=== PATIENT | male | born 1960 | race Caucasian/White ===

== ENCOUNTER 2020-06-01 09:45 | Day surgery (SDC) | payer OTHER ==
[2020-05-30 10:20] LABS: HEMATOCRIT 45.1 % (42.0-54.0); HEMOGLOBIN 15.6 g/dL (13.5-17.5); MCH 33.1 pg (26.0-34.0); MCHC 34.6 g/dL (31.0-37.0); MCV 95.6 fL (80.0-100.0); MEAN PLATELET VOLUME 9.7 fL (7.4-10.4); RBC 4.72 10x6/uL (4.20-6.10); RDW 14.1 % (11.5-14.5); WBC 10.1 10x3/uL (4.8-10.8)
[~2020-06-01] VITALS: Ht 185.4 cm; Wt 97.1 kg
--- NOTE | ~2020-06-01 | OP ---
PATIENT NAME: INES CORDOVA MEDICAL RECORD: [id number] :58 LOCATION:D.OPS ADMISSION DATE: SURGEON: JOSIE ROSE MD DATE OF OPERATION: 06/01/2020 PREOPERATIVE DIAGNOSES: Lumbar spinal stenosis and foraminal stenosis at L4-L5 on the right. POSTOPERATIVE DIAGNOSES: Lumbar spinal stenosis and foraminal stenosis at L4-L5 on the right. PROCEDURES: Lumbar laminotomy, medial facetectomy and foraminotomy with sublaminar decompression at L4-L5, right and left. SURGEON: Josie Rose MD [place] OPERATOR: Cristian Wright. DESCRIPTION OF TECHNIQUE: After induction of general endotracheal anesthesia, the patient was rolled prone on a Hamilton frame. Lumbar spine was prepped and draped in usual sterile fashion. Fluoroscopic x-ray and spinal needle localized at L4-L5 interspace on the right side. After infiltration of 1:100,000 epinephrine with 1% lidocaine, a stab incision was created with a #11 blade. A series of dilators was used to advance a METRx retractor to the L4-L5 interspace on the right. The level was confirmed with fluoroscopic x-ray. A microscope and Midas Mal drill were used to perform a laminectomy, medial facetectomy and foraminotomy at L4-L5 on the right. Hypertrophied ligamentum flavum was removed with Cloward rongeurs. Following this, the L4 and L5 nerve roots decompressed on the right side. The spinous process of L4 was undermined with using a Midas-Mal drill. Hypertrophied ligamentum flavum was removed on the opposite side with Cloward rongeurs. The foraminotomy was carried out on the left side with Cloward rongeurs. Following this, both L4 and L5 nerve roots were decompressed well. Meticulous hemostasis was maintained throughout the wound. Wound was irrigated with copious amounts of Ancef irrigant solution. The retractors removed. The fascia was closed with 2-0 Vicryl suture, the subdermal layer was closed with 3-0 Vicryl suture, skin was closed with tio. A sterile dressing was applied to the wound. The patient was awakened in good condition and taken to recovery. All counts were reported as correct. Estimated blood loss was minimal. During the entirety of the procedure, Cristian Wright provided retraction and hemostasis as first coat sander. TRANSINT:[id number] Voice Confirmation ID: [id number] DOCUMENT ID: [id number] JOSIE ROSE MD CC: [id number] DICTATION DATE: 06/05/20805 WELDER/INSTALLER: 06/05/201901 [facility] 06/01/20 [place] [id number] [place] [id number]
[~2020-06-01 09:45] MED LIST: BAYER CHEWABLE81 MG PO; COZAAR25 MG PO; NORVASC5 MG PO; ULTRAM50 MG PO
[2020-06-01 10:47] VITALS: BP 128/83; Ht 185.4 cm; Wt 97.1 kg
[2020-06-01] MEDS ORDERED: HYDROCODON-ACE1 EA10 PO (13:09)
[2020-06-01] MEDS ORDERED: MEDROL DOSE PACK4 MG PO (13:09)
--- NOTE | 2020-06-01 15:24 | NUR ---
1415 DRESSING REINFORCED 1420 IV REMOVED 1450 PT DISCHARGED HOME WITH INSTRUCTIONS
== END 2020-06-01 14:50 | disposition home or self-care (01) ==
LOC: D.OPS 09:45 → D.PAN 10:00 → D.OPS 10:30 → D.PAN 10:30 → D.OPS 12:00
PROVIDERS: Anesthesiology; ATTEND Neurological Surgery
DX: M48.061 Spinal stenosis, lumbar region without neurogenic claudication (principal); I10 Essential (primary) hypertension; Z72.0 Tobacco use